=== PATIENT | female | born 1985 | race Caucasian/White ===

== ENCOUNTER → 2018-02-22 16:37 | Outpatient (CLI) | payer MEDICAID, SELFPAY ==
[2018-02-28 10:27] LABS: HPV Reflexed? NOT INDICATED
== END ==
PROVIDERS: Family Provider Internal Medicine; PCP Internal Medicine; Visit Provider Obstetrics & Gynecology
DX: Z12.4 Encounter for screening for malignant neoplasm of cervix (principal)
CPT/HCPCS: 88175; G0145

== ENCOUNTER → 2019-08-15 16:34 | Outpatient (CLI) | payer OTHER, SELFPAY ==
--- NOTE | 2019-08-15 | VUL_PTH ---
PATIENT: JAMARI COATS [facility] U#:[id number] AGE/SX: 39/F ROOM: RE08/15/[address]: Dr. Natasha Bonds MD : 1985 BED: DIS: SPEC #: [id number] RECD: 08/15/19 16:34 STATUS: KATHARINE DELORES #: [id number] MAGUE: 08/15/19 00:[address]: Natasha Bonds DEPT: SURGICAL PATHOLOGY RECD BY: Elijah Amaya ENTERED: 08/16/19 11:20 SP TYPE: VULVA BX OTHR DR: Dr. Nataliia Mclean MD Tissues: Vulva, NOS Procedures: Surgery Specimen Level IV HEADER OPERATION: Vulva biopsy PRE-OP DIAGNOSIS: RISA III TISSUE SUBMITTED: Vulva MICROSCOPIC DIAGNOSIS Vulva, biopsy: Minimal dermal chronic inflammation. Mild hyperkeratosis. No evidence of dysplasia. AM:dorian 2/14/20 MICROSCOPIC DESCRIPTION Slides are reviewed. GROSS DESCRIPTION Received is one container labeled with the patient's name and not further designated. The specimen consists of an irregular fragment of mitchell tissue measuring 0.5 x 0.2 x 0.1 cm. The specimen is totally submitted in one cassette. / AM:dorian 08/16/19 TC:5 CPT: 01142
[2019-08-15 11:14] VITALS: BMI 28.5
[2019-08-21 12:06] LABS: HPV APTIMA, High Risk Negative (Negative)
== END ==
PROVIDERS: PCP Family Medicine; Referring Provider Obstetrics & Gynecology; Visit Provider Obstetrics & Gynecology
DX: Z12.4 Encounter for screening for malignant neoplasm of cervix (principal)
CPT/HCPCS: 87624; 88175; 88305; G0145